=== PATIENT | male | born 1990 | race Caucasian/White ===

== ENCOUNTER 2024-08-02 20:03 | Observation (INO) | payer OTHER, SELFPAY ==
[2024-08-02] VITALS (19 sets, daily range): BP systolic 115–144; BP diastolic 56–83; PULSE 59–90; RESP 15–21; TEMP 37.2; O2SAT 93–99; BMI 38.0
--- NOTE | 2024-08-02 20:12 | DI.RAD.S_ITS ---
PROCEDURE: XR CHEST 1V INDICATIONS: Chest Pain TECHNIQUE: One view of the chest was acquired. COMPARISON: None. FINDINGS: Surgical changes and devices: None. Lungs and pleura: Lungs are clear. No pleural effusions or pneumothorax. Mediastinum: Mediastinal contours appear normal. Heart size is normal. Bones and chest wall: No suspicious bony lesions. Overlying soft tissues appear unremarkable. IMPRESSION: No acute pulmonary process. Dictated by: Jane Avila M.D. on 08/02/2024 at 21:45 Approved by: Jane Avila M.D. on 08/02/2024 at 21:45
--- NOTE | 2024-08-02 20:17 | EKG_ITS ---
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
--- NOTE | 2024-08-02 20:27 | ED_ITS ---
HPI - Chest Pain General Chief Complaint: Chest Pain Stated Complaint: Chest Pain, SOB Time Seen by Provider: 08/02/24 20:23 Source: patient, RN notes reviewed and old records reviewed Mode of arrival: Family Vehicle Limitations: no limitations History of Present Illness HPI narrative: 33-year-old male reported history of NSTEMI with cardiac stent parotid% occlusion of RCA placed approximately 3 weeks ago I have [facility]. Patient was seen initially at [place] [facility]. Presents with complaint of chest pain x2 days. Patient states sort of substernal has been present for the past 2 days on and off initially thought it was secondary to food but notes sometimes with exertion but not always pretty states it was sort of comes and goes. It does radiate towards his back. He states his hands and feet feel sweaty he has felt sort of lightheaded. No fevers. He was felt a little bit short of breath. Denies any nausea or vomiting. No new swelling in his extremities. No syncope. Patient states that he did have 1 stent placed was told he had 100% occlusion, was started on aspirin 81 mg, Brilinta, atorvastatin, metoprolol, amlodipine and pantoprazole. States no other prior surgeries. No family history of cardiac issues. Quit smoking about a week ago. No alcohol, no recreational drugs. He was currently without a primary care. Does not have follow up with Cardiology as did not accept his insurance has been trying to find follow up. Patient was accompanied by his girlfriend. Related Data Allergies Allergy/AdvReac Type Severity Reaction Status Date / Time carvedilol Allergy Verified 08/02/24 20:22 Review of Systems Review of Systems ROS Unobtainable: All systems reviewed & are unremarkable except as noted in HPI and below Exam Narrative Exam Narrative: GENERAL: Alert and oriented x three, male in mild distress HEENT: Head normocephalic, atraumatic, EOMI, pupils reactive, face symmetric, moist mucous membranes NECK: Supple, full range of motion CARDIOVASCULAR: Regular rate and rhythm without murmurs, rubs or gallops. No JVD. No edema bilateral lower extremities. RESPIRATORY: Breath sounds equal bilaterally, no wheezes rales or rhonchi. No tachypnea or accessory muscle use. ABDOMEN: Soft, nontender. Normoactive bowel sounds all 4 quadrants. No guarding or rebound, rigidity, no mass : No CVA tenderness EXTREMITIES: Normal range of motion, no clubbing or edema. Neurovascularly intact NEUROLOGICAL: Cranial nerves II through XII grossly intact. Moving all extremities SKIN: Warm, dry, no petechiae, no rashes or lesions. Initial Vital Signs Initial Vital Signs: Vital Signs Temperature 99.0 F 08/02/24 20:10 Pulse Rate 66 08/02/24 20:10 Respiratory Rate 18 08/02/24 20:10 Blood Pressure 120/67 08/02/24 20:10 Pulse Oximetry 98 08/02/24 20:10 Oxygen Delivery Method Room Air 08/02/24 20:10 Course Orders Ordered: ED Orders 08/02/24 20:12 XR chest 1V Stat EKG-12 Lead Stat 08/02/24 20:35 Complete Blood Count AUTO DIFF Stat Comprehensive Metabolic Panel Stat Lipase Stat Magnesium Stat NT-proBNP (BNP-Adult 18+) Stat PTT Partial Thromboplastin Chucky Stat Prothrombin Time INR Stat Troponin & CK Cardiac Panel Stat 08/02/24 21:20 CT angio chest PE protocol Stat 08/02/24 22:25 Trop I [Troponin I] Stat 08/02/24 22:26 EKG-12 Lead Stat Nitroglycerin (Nitroglycerin 0.4 Mg Sl Tab) 0.4 mg SL [id number] PRN PRN Reason: Chest Pain Last Admin: 08/02/24 20:51 Dose: 0.4 mg Documented By: Admin: 08/02/24 20:43 Dose: 0.4 mg Documented By: ALEX Discontinued Medications Aspirin (Aspirin 81 Mg Chew Tab) 324 mg PO NOW ONE Stop: 08/02/24 20:12 Last Admin: 08/02/24 20:42 Dose: 324 mg Documented By: ALEX Morphine Sulfate (Morphine 4 Mg/Ml Inj) 4 mg IV NOW ONE Stop: 08/02/24 21:08 Last Admin: 08/02/24 21:15 Dose: 4 mg Documented By: TOLU Morphine Sulfate (Morphine 4 Mg/Ml Inj) 4 mg IV NOW ONE Stop: 08/02/24 23:15 Last Admin: 08/02/24 23:18 Dose: 4 mg Documented By: ALEX Vital Signs Vital signs: Vital Signs - 8 hr 08/02/24 20:10 08/02/24 20:32 08/02/24 20:32 Temperature 99.0 F Pulse Rate 66 75 Respiratory Rate 18 16 Blood Pressure 120/67 144/83 H Pulse Oximetry 98 99 Oxygen Delivery Method Room Air 08/02/24 20:43 08/02/24 20:45 08/02/24 20:45 Temperature Pulse Rate 90 74 Respiratory Rate 15 Blood Pressure 144/83 H 133/74 Pulse Oximetry 97 Oxygen Delivery Method 08/02/24 20:51 08/02/24 20:51 08/02/24 20:51 Temperature Pulse Rate 74 78 Respiratory Rate 18 Blood Pressure 124/59 L 124/59 L Pulse Oximetry 98 Oxygen Delivery Method 08/02/24 20:55 08/02/24 20:55 08/02/24 21:00 Temperature Pulse Rate 75 Respiratory Rate 15 Blood Pressure 117/56 L 120/57 L Pulse Oximetry 97 Oxygen Delivery Method 08/02/24 21:00 08/02/24 21:04 08/02/24 21:04 Temperature Pulse Rate 74 76 Respiratory Rate 15 18 Blood Pressure 122/58 L Pulse Oximetry 97 93 Oxygen Delivery Method 08/02/24 21:05 08/02/24 21:05 08/02/24 21:10 Temperature Pulse Rate 75 Respiratory Rate 21 Blood Pressure 120/56 L 120/58 L Pulse Oximetry 95 Oxygen Delivery Method 08/02/24 21:10 08/02/24 21:15 08/02/24 21:15 Temperature Pulse Rate 74 70 Respiratory Rate 16 19 Blood Pressure 122/56 L Pulse Oximetry 96 96 Oxygen Delivery Method 08/02/24 21:20 08/02/24 21:20 08/02/24 21:25 Temperature Pulse Rate 74 Respiratory Rate 17 Blood Pressure 130/68 123/64 Pulse Oximetry 98 Oxygen Delivery Method 08/02/24 21:25 08/02/24 21:39 08/02/24 22:00 Temperature Pulse Rate 67 66 64 Respiratory Rate 16 15 Blood Pressure Pulse Oximetry 98 94 97 Oxygen Delivery Method 08/02/24 22:30 08/02/24 23:00 08/02/24 23:03 Temperature Pulse Rate 65 66 65 Respiratory Rate 20 Blood Pressure Pulse Oximetry 98 96 98 Oxygen Delivery Method Room Air 08/02/24 23:03 Temperature Pulse Rate Respiratory Rate Blood Pressure 122/63 Pulse Oximetry Oxygen Delivery Method MDM - Chest Pain Lab Data 08/02/24 20:35 08/02/24 20:35 Labs: Lab Results 08/02/24 08/02/24 Range/Units 20:35 22:25 WBC 6.0 (4.5-11.0) X10^3/uL RBC 4.82 (4.5-5.9) X10^6/uL Hgb 14.4 (13.5-17.5) g/dL Hct 41.4 (41-53) % MCV 85.8 (80-100) fL MCH 29.9 (26-34) PG MCHC 34.9 (30-36) % RDW 13.1 (11.6-14.8) % Plt Count 357 (150-400) X10^3/uL Neut % (Auto) 61.6 (50-75) % Lymph % (Auto) 24.1 L (25-40) % Green % (Auto) 9.2 (3-14) % Eos % (Auto) 3.9 (2-4) % Baso % (Auto) 1.2 (0-2) % Neut # (Auto) 3700 (5715-0432) /uL Lymph # (Auto) 1400 (4987-7091) /uL Green # (Auto) 600 (0-900) /uL Eos # (Auto) 200 (0-450) /uL Baso # (Auto) 100 (0-100) /uL PT 11.8 (9.4-12.5) SECONDS INR 1.0 (0.9-1.3) APTT 35 (25.1-36.5) SECONDS Sodium 138 (137-145) mmol/L Potassium 3.7 (3.4-5.1) mmol/L Chloride 103 (98-107) mmol/L Carbon Dioxide 26 (22-32) mmol/L BUN 8 L (9-20) mg/dL Creatinine 0.96 (0.66-1.25) mg/dL Estimated GFR > 60 (>60) mL/min BUN/Creatinine Ratio 8.3 (6-22) Glucose 105 H (70-99) mg/dL Calcium 8.9 (8.4-10.2) mg/dL Magnesium 1.9 (1.6-2.3) mg/dL Total Bilirubin 0.6 (0.2-1.3) mg/dL AST 26 (17-59) IU/L ALT 28 (<50) IU/L Alkaline Phosphatase 84 (38-126) U/L Total Creatine Kinase 57 (55-170) U/L Troponin I < 0.012 < 0.012 (0.01-0.034) ng/mL NT-Pro-B Natriuret Pep 214 H (<125) pg/mL Total Protein 8.0 (6.3-8.2) g/dL Albumin 4.3 (3.5-5.0) g/dL Globulin 3.7 (1.7-4.1) g/dL Albumin/Globulin Ratio 1.2 (1.0-2.8) Lipase 77 (23-300) U/L ECG Data Attestation: I personally reviewed and interpreted this ECG as follows: Prior ECG tracings: not available for review Interpretation: Sinus rhythm rate of 72 VA 128 QRS 84 QTC of 394 T-wave inversions in lead 2 3 and AVF with a diversion and V6. V2 S is elevated with a peak T-wave but no elevation contiguous leads. Patient does have a Q-wave in 1 and aVL. EKG 2. Shows a rate of 68 VA 128 QRS 86 QTC of 393 sinus rhythm appears similar to prior with no acute ST or dynamic ST changes appreciated. T-wave inversions are present in 2 3 and AVF as well as V6, patient has elevated S. Q-wave in 1 and aVL. EKG 3. Sinus rhythm rate of 65 VA 136 QRS 84 QTC of 409, nonspecific change from to priors, do not appreciate any dynamic changes other than flattening of T-wave in V6. MDM Narrative Medical decision making narrative: 33-year-old male with recent myocardial infarction 3 weeks ago on appropriate medication including aspirin, Brilinta, atorvastatin, metoprolol and amlodipine as well as pantoprazole start having chest pain in the past 2 days which he describes as intermittent nothing seems to really make it better or worse. He was normotensive here, no hypoxia. Do not have any prior EKGs but he does not have a normal EKG. Tenting to obtain records from [facility]. Labs show normal hemoglobin platelets, coags are negative BUN is a electrolytes BUN creatinine are normal glucose is 105 troponins less than 0.012 BNP is 214. Repeat troponin is less than 0.012 EKG show no dynamic changes. Chest x-ray no acute pulmonary process CTA shows no pulmonary embolus no other acute pulmonary process. No pericardial effusion. Patient received aspirin and nitro sublingual, patient's chest pain improved to 4/10 but has not resolved. Was given a dose of morphine and is no chest pain free. chest pain did reoccur and had additional dose of pain medication. Spoke with cardiology from [facility]: Dr. Herrera at [facility] at 1205. Reviewed workup today, EKGs, imaging. Did note I do not have any priors for comparison. He would recommend observation serial troponins and echo does not feel that he needs a stress test. He states if troponins were negative would not feel that he requires heart catheterization. Spoke with Dr. Madden, telehospitalist who accepts for observation. Reviewed findings from from today, EKGs, imaging. Recommendations from Cardiology and [facility]. Discharge Plan Departure Patient Disposition: Admitted as Observation Clinical Impression: Chest pain
--- NOTE | 2024-08-02 20:27 | EKG_ITS ---
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
[2024-08-02] MEDS: ASPIRIN 81 MG CHEW TAB 324 MG PO (20:42)
[2024-08-02] MEDS: NITROGLYCERIN 0.4 MG SL TAB SL ×2 (20:43→20:51)
[2024-08-02 20:46] LABS: Add Manual Diff / Slide Review NO; Basophils Absolute Auto 100 /uL (0-100); Basophils Percent Auto 1.2 % (0-2); Eosinophils Absolute Auto 200 /uL (0-450); Eosinophils Percent Auto 3.9 % (2-4); Hematocrit 41.4 % (41-53); Hemoglobin 14.4 g/dL (13.5-17.5); Lymphocytes Absolute Auto 1400 /uL (1100-4500); Lymphocytes Percent Auto 24.1 % (25-40); Mean Corpuscular HGB Conc 34.9 % (30-36); Mean Corpuscular Hemoglobin 29.9 PG (26-34); Mean Corpuscular Volume 85.8 fL (80-100); Monocytes Absolute Auto 600 /uL (0-900); Monocytes Percent Auto 9.2 % (3-14); Neutrophils Absolute Auto 3700 /uL (1500-7000); Neutrophils Percent Auto 61.6 % (50-75); Platelet Count 357 X10^3/uL (150-400); Red Blood Cell Count 4.82 X10^6/uL (4.5-5.9); Red Cell Distribution Width 13.1 % (11.6-14.8)
[2024-08-02 20:53] LABS: Prothrombin Time 11.8 SECONDS (9.4-12.5)
[2024-08-02 20:55] LABS: PTT Partial Thromboplastin Tim 35 SECONDS (25.1-36.5)
[2024-08-02 20:58] LABS: Alanine Aminotransferase 28 IU/L (<50); Albumin 4.3 g/dL (3.5-5.0); Albumin Globulin Ratio 1.2 (1.0-2.8); Alkaline Phosphatase 84 U/L (38-126); Aspartate Aminotransferase 26 IU/L (17-59); BUN Creatinine Ratio 8.3 (6-22); Bilirubin Total 0.6 mg/dL (0.2-1.3); Blood Urea Nitrogen 8 mg/dL (9-20); Calcium 8.9 mg/dL (8.4-10.2); Carbon Dioxide 26 mmol/L (22-32); Chloride 103 mmol/L (98-107); Creatine Kinase 57 U/L (55-170); Estimated Glomerular Filt Rate > 60 mL/min (>60); Globulin 3.7 g/dL (1.7-4.1); Glucose 105 mg/dL (70-99); HEMOLYSIS < 15 (0-50); Lipase 77 U/L (23-300); Magnesium 1.9 mg/dL (1.6-2.3); Potassium 3.7 mmol/L (3.4-5.1); Sodium 138 mmol/L (137-145)
[2024-08-02 21:10] LABS: NT-proBNP (BNP-Adult 18+) 214 pg/mL (<125); Troponin I < 0.012 ng/mL (0.01-0.034)
[2024-08-02] MEDS: MORPHINE 4 MG/ML INJ IV ×2 (21:15→23:18)
--- NOTE | 2024-08-02 21:20 | DI.CT.S_ITS ---
PROCEDURE: CT ANGIO CHEST PE PROTOCOL INDICATIONS: chest pain, 3 weeks post cardiac stent TECHNIQUE: After the administration of intravenous contrast, 2 mm thick sections acquired from the pulmonary apices to the posterior costophrenic angles. 3-dimensional maximum intensity projection (MIP) coronal and sagittal reformats were then acquired through the thorax. For radiation dose reduction, the following was used: automated exposure control, adjustment of mA and/or kV according to patient size. COMPARISON: [facility], CR, XR CHEST 1V, 08/02/2024, 20:21. FINDINGS: Image quality: Diagnostic. Pulmonary arteries: Pulmonary arteries are normal in size, and demonstrate no intraluminal filling defects to suggest central pulmonary embolism. Lower Neck: No enlarged lymph nodes. Thyroid: No thyroid nodules which require sonographic follow up, per consensus guidelines. Axillae: No enlarged lymph nodes. Chest Wall: Unremarkable. Bones: Unremarkable. Lungs and Pleura: No pneumothorax or pleural effusions. No consolidation or suspicious nodules. Heart: Heart size is normal. No pericardial effusion. Thoracic Vessels: No aortic aneurysm. Mediastinum and Shelly: No enlarged lymph nodes. Esophagus: No wall thickening. Minimal hiatal hernia. Upper Abdomen: Visualized upper abdomen solid organs and bowel loops appear normal. IMPRESSION: No pulmonary embolus. No acute cardiopulmonary process. Dictated by: Jane Avila M.D. on 08/02/2024 at 22:01 Approved by: Jane Avila M.D. on 08/02/2024 at 22:01
--- NOTE | 2024-08-02 22:33 | EKG_ITS ---
[place] [id number] [place] [id number] Test Date: 2024-08-02 Pat Name: Ethan Angel Department: Room: 222 Gender: Male Graphics Manager: BOBBY : 1990 Requested By: Order Number: [id number] Reading MD: Grupo Ochoa Measurements Intervals [place] Rate: 65 P: 17 CT: 136 QRS: -9 QRSD: 84 T: -30 QT: 394 QTc: 409 Interpretive Statements Normal sinus rhythm Minimal voltage criteria for LVH, may be normal variant ( R in aVL ) Cannot rule out Inferior infarct , age undetermined Electronically Signed On 08-04-2024 19:06:21 PDT by Grupo Ochoa
[2024-08-02 23:01] LABS: Troponin I < 0.012 ng/mL (0.01-0.034)
--- NOTE | 2024-08-02 23:08 | PC.NURSE ---
Pt reports 4/10 left sided chest pain. Provider Aftab made aware.
[2024-08-03] VITALS (8 sets, daily range): BP systolic 103–130; BP diastolic 53–78; PULSE 54–65; RESP 12–21; TEMP 35.7–36.6; O2SAT 96–100; BMI 38.1
--- NOTE | 2024-08-03 | DI.ECHO.S_ITS ---
[facility] +---------+ [facility] : : [address] : : [place] : : [id number] : : Phone: [phone] Echocardiogram Report + + :Name: JANE WAGNER Study Date: 08/03/2024 Height: 70 in : :Hospital ReadingLocation: Weight: 265 lb : : Gender: Male BSA: 2.4 m2 : :: 1990 Age: 33 yrs BP: 109/57 mmHg: :Reason For Study: CHEST PAIN : :Ordering Physician: JUSTYN, : :YANELIS Performed By: Yu Agudelo : :Referring: YANELIS ALEJANDRA : + + Interpretation Summary 1) Normal left ventricular thickness and size with low normal systolic function (EF 50-55%). 2) Normal right ventricular size and function. 3) No significant valvular abnormalities. 4) No prior Echo available for comparison. Procedure: A two-dimensional transthoracic echocardiogram with color flow and Doppler was performed. The study quality was technically adequate. There is no prior echocardiogram noted for this patient. The patient was in sinus bradycardia with heart rates between 50-62 bpm during the exam. Left Ventricle: The left ventricle is normal in size and wall thickness. The ejection fraction is estimated to be 50-55%. There are no obvious focal wall motion abnormalities noted but poor endocardial definition reduces the sensitivity for the detection of such. Diastolic parameters suggest probable normal left ventricular diastolic function and normal filling pressures. Right Ventricle: The right ventricle is normal in size and function. Atria: The left atrial size is normal. Right atrial size is normal. There is no Doppler evidence for an interatrial shunt. Mitral Valve: The mitral valve leaflets appear mildly thickened, but open well. There is trace mitral regurgitation. Aortic Valve: The aortic valve is trileaflet. The aortic valve opens well. There is no aortic valve stenosis. No aortic regurgitation is present. Tricuspid Valve: The tricuspid valve leaflets are thin and pliable. There is mild tricuspid regurgitation. The right ventricular systolic pressure is estimated to be at least 23 mmHg based on an estimated right atrial pressure of 3 mm Hg. Pulmonic Valve: The pulmonic valve leaflets are thin and pliable; valve motion is normal. There is trace pulmonic regurgitation. Great Vessels: The aortic root is normal size. The dimensions of the ascending aorta are normal. The IVC is of normal diameter and collapses greater than 50% with a sniff. This suggests a low right atrial pressure of 3 mm Hg. Pericardium/ Pleura There is no pericardial effusion. There is no pleural effusion. MMode/2D Measurements & Calculations LVIDd: 5.6 cm LVOT diam: 2.3 cm LVIDs: 4.1 cm Ao root diam: 3.0 cm FS: 27.8 % asc Aorta Diam: 2.9 cm EPSS: 1.2 cm Ao Arch Diam (Prox Trans): 2.9 cm IVSd: 0.85 cm LVPWd: 0.86 cm LV stacy. diameter/BSA (cm/m^2): 2.4 LV sys. diameter/BSA (cm/m^2): 1.7 LA A2 area: 19.3 cm2 RA long axis: 4.2 cm LA A4 area: 16.2 cm2 RA area: 14.7 cm2 LA length (vol): 5.3 cm RA vol: 43.7 ml LA vol: 50.2 ml RA : 18.6 ml/m2 LA vol index: 21.3 ml/m2 IVC diam: 1.3 cm RVD1 (basal): 3.9 cm RVD2 (mid): 3.4 cm TAPSE: 2.1 cm Doppler Measurements & Calculations Ao V2 max: 121.3 cm/sec LVOT Max Salvador: 68.8 cm/sec Ao V2 mean: 83.3 cm/sec LV V1 max P.9 mmHg Ao max P.9 mmHg LV V1 VTI: 15.0 cm Ao mean P.1 mmHg ERENDIRA(I,D): 2.3 cm2 Ao V2 VTI: 27.4 cm ERENDIRA(V,D): 2.4 cm2 sev ratio: 0.55 ERENDIRA indexed to BSA (cm^2/m^2): 0.97 MV E max salvador: 75.6 cm/sec TR max salvador: 224.6 cm/sec MV A max salvador: 32.5 cm/sec TR max P.2 mmHg MV E/A: 2.3 PA V2 max: 86.4 cm/sec Med Peak E' Salvador: 11.4 cm/sec PA V2 mean: 61.9 cm/sec E/E' med: 6.6 PA mean P.7 mmHg Lat Peak E' Salvador: 12.1 cm/sec PA pr(Accel): 17.3 mmHg E/E' lat: 6.2 E/e' average: 6.4 MV dec time: 0.15 sec SV(LVOT): 62.4 ml Reading Physician:10:09 AM
[2024-08-03] MEDS: MORPHINE 4 MG/ML INJ 3 MG IV ×2 (01:50→05:57)
--- NOTE | 2024-08-03 05:07 | PM.HP.1 ---
History of Present Illness History of Present Illness Chief complaint: Chest Pain, SOB Narrative: 33-year-old male with past medical he of coronary disease, hypertension and hyperlipidemia presents with chest pain. Of note the patient was seen in [facility] 3 weeks ago and was found to have significant coronary disease with reported 100% stenosis of his RCA. At that time the patient received a stent and was placed on aspirin, atorvastatin and Brilinta. The patient states that he has been chest pain-free since and has been doing relatively well the patient has been compliant to all the medication that he was prescribed. However today the patient started to have acute onset of left-sided chest pain. Acute onset of left-sided chest pain. The patient states that his pain is similar to what he experienced 3 weeks ago in which it was dull and intermittent. The patient denies any radiation of his pain. Otherwise the patient denies any recent fever, chills, nausea, vomiting, diarrhea, shortness of breath or syncope. In the emergency room, the patient was hemodynamically stable. Tropes were negative x 2. Other labs were relatively benign. Cardiology group from [facility] was consulted and recommended that we admit the patient to continue to trend troponin and obtain echocardiogram in the morning. Of note EKG shows no acute changes from recent EKG. If troponin remains negative and echocardiogram is normal patient may be able to be discharged home and follow-up with cardiology as outpatient. [facility] Social History household members: significant other and family Smoking Status: Former smoker alcohol intake: never Meds Home Medications and Allergies Home Medications Medication Instructions Recorded Confirmed Type amlodipine 10 mg tablet 10 mg PO BEDTIME 08/03/24 08/03/24 History aspirin 81 mg tablet,delayed 81 mg PO DAILY 08/03/24 08/03/24 History release atorvastatin 40 mg tablet 40 mg PO BEDTIME 08/03/24 08/03/24 History metoprolol succinate 50 mg 50 mg PO BEDTIME 08/03/24 08/03/24 History tablet,extended release 24 hr pantoprazole 20 mg tablet,delayed 20 mg PO DAILY 08/03/24 08/03/24 History release ticagrelor 90 mg tablet (Brilinta) 90 mg PO BID 08/03/24 08/03/24 History Allergies Allergy/AdvReac Type Severity Reaction Status Date / Time carvedilol Allergy Verified 08/02/24 20:22 Review of Systems Review of Systems ROS: Yes All systems reviewed with the patient and are negative except as otherwise documented Exam Vital Signs (past 8 hours): - 08/02/24 21:10 08/02/24 21:10 08/02/24 21:15 Temperature Pulse Rate 74 Respiratory Rate 16 Blood Pressure 120/58 L 122/56 L Pulse Oximetry 96 Oxygen Delivery Method Oxygen Flow Rate 08/02/24 21:15 08/02/24 21:20 08/02/24 21:20 Temperature Pulse Rate 70 74 Respiratory Rate 19 17 Blood Pressure 130/68 Pulse Oximetry 96 98 Oxygen Delivery Method Oxygen Flow Rate 08/02/24 21:25 08/02/24 21:25 08/02/24 21:39 Temperature Pulse Rate 67 66 Respiratory Rate 16 Blood Pressure 123/64 Pulse Oximetry 98 94 Oxygen Delivery Method Oxygen Flow Rate 08/02/24 22:00 08/02/24 22:30 08/02/24 23:00 Temperature Pulse Rate 64 65 66 Respiratory Rate 15 20 Blood Pressure Pulse Oximetry 97 98 96 Oxygen Delivery Method Oxygen Flow Rate 08/02/24 23:03 08/02/24 23:03 08/02/24 23:30 Temperature Pulse Rate 65 59 L Respiratory Rate 21 Blood Pressure 122/63 Pulse Oximetry 98 98 Oxygen Delivery Method Room Air Oxygen Flow Rate 08/02/24 23:30 08/03/24 00:00 08/03/24 00:00 Temperature Pulse Rate 65 Respiratory Rate 17 Blood Pressure 115/62 130/78 Pulse Oximetry 99 Oxygen Delivery Method Oxygen Flow Rate 08/03/24 00:30 08/03/24 00:30 08/03/24 01:00 Temperature Pulse Rate 60 Respiratory Rate 13 Blood Pressure 116/64 110/60 Pulse Oximetry 96 Oxygen Delivery Method Oxygen Flow Rate 08/03/24 01:00 08/03/24 01:20 08/03/24 02:19 Temperature 96.2 F L Pulse Rate 58 L 59 L Respiratory Rate 21 19 Blood Pressure 117/68 Pulse Oximetry 96 100 Oxygen Delivery Method Room Air Oxygen Flow Rate 0 08/03/24 04:00 Temperature 96.5 F L Pulse Rate 57 L Respiratory Rate 18 Blood Pressure 109/57 L Pulse Oximetry 99 Oxygen Delivery Method Oxygen Flow Rate 0 Oxygen Delivery Method Room Air Oxygen Flow Rate 0 Narrative Exam Narrative: Physical Exam: GENERAL: The patient is not in any acute distressed. Awake and alert. HEENT: Nonicteric sclerae, PERRLA, EOMI. Oropharynx clear. Moist mucous membranes. Conjunctivae appear well perfused. HEART: Regular rate and rhythm without murmurs. No lower extremities edema. LUNGS: Clear to auscultation bilaterally. No wheezing, crackles or rhonchi ABDOMEN: Soft, positive bowel sounds, nontender. SKIN: No rash, no excessive bruising, petechiae, or purpura. NEUROLOGIC: AxO x 3. Cranial nerves II-XII intact without motor/sensory deficit. Objective Labs 08/02/24 20:35 08/02/24 20:35 Labs: Laboratory Results - last 24 hr 08/02/24 08/02/24 20:35 22:25 WBC 6.0 RBC 4.82 Hgb 14.4 Hct 41.4 MCV 85.8 MCH 29.9 MCHC 34.9 RDW 13.1 Plt Count 357 Neut % (Auto) 61.6 Lymph % (Auto) 24.1 L [place] % (Auto) 9.2 Eos % (Auto) 3.9 Baso % (Auto) 1.2 Neut # (Auto) 3700 Lymph # (Auto) 1400 [place] # (Auto) 600 Eos # (Auto) 200 Baso # (Auto) 100 PT 11.8 INR 1.0 APTT 35 Sodium 138 Potassium 3.7 Chloride 103 Carbon Dioxide 26 BUN 8 L Creatinine 0.96 Estimated GFR > 60 BUN/Creatinine Ratio 8.3 Glucose 105 H Calcium 8.9 Magnesium 1.9 Total Bilirubin 0.6 AST 26 ALT 28 Alkaline Phosphatase 84 Total Creatine Kinase 57 Troponin I < 0.012 < 0.012 NT-Pro-B Natriuret Pep 214 H Total Protein 8.0 Albumin 4.3 Globulin 3.7 Albumin/Globulin Ratio 1.2 Lipase 77 Assessment & Plan Assessment & Plan narrative: Chest pain. Admit the patient to medical telemetry under observation.Tropes were negative x 2. Other labs were relatively benign. Cardiology group from [facility] was consulted and recommended that we admit the patient to continue to trend troponin and obtain echocardiogram in the morning. Of note EKG shows no acute changes from recent EKG. If troponin remains negative and echocardiogram is normal patient may be able to be discharged home and follow-up with cardiology as outpatient. Continue home aspirin and other cardiac medication. Hypertension. Resume home amlodipine. Hyperlipidemia. Resume home statin. DVT prophylaxis SCDs due to observational status. CODE STATUS full code. Disposition likely home in 1 to 2 days - As the provider of this telehealth evaluation, requested by the patient's evaluating physician, I attest that I introduced myself to the patient, provided my credentials and determined that telemedicine via a real-time, 2 way interactive audio and video platform is an appropriate and effective means of providing this service. - I reviewed the patient's chart and had a discussion with the member of the patient's treatment team. - The patient and I mutually agreed with continuation of this evaluation via telemedicine. The patient consented for the telemedicine evaluation. - This virtual encounter was taken place from [place] by Dr. Gomez Madden. The patient was evaluated at [facility]. The encounter was approximately 35 minutes. The nurse was present during the entire time of the encounter and was able to move the stethoscope in appropriate directions. Time-Based Coding :: [TOTAL MINUTES] spent with patient and on the chart (including review of chart, obtaining history, exam, reviewing outside data, placing orders, documenting exam and treatment plan, and counseling patient) on [DATE]. Quality VTE Deep Vein Thrombosis/Pulmonary Embolism Present on Admission: No
[2024-08-03] MEDS: ASPIRIN EC 81 MG TABLET PO (09:04)
[2024-08-03] MEDS: PANTOPRAZOLE DR 20 MG TABLET PO (09:04)
[2024-08-03] MEDS: TICAGRELOR 90 MG 90 EACH PO (09:06)
[2024-08-03] MEDS: SODIUM CHLORIDE 0.9% FLUSH 10 ML IV (09:07)
--- NOTE | 2024-08-03 09:41 | PC.NURSE ---
Patient states that his chest pain is now down to a 4/10. Blood Pressure WNL with dyastolic in the 60s, all morning medications given. Patient complains of dizziness at times, he will call if he needs to get up to use the bathroom. Tele is in place. Will give patient Morphine if his chest pain goes up or gets worse, and notify the
[2024-08-03] MEDS: predniSONE 20 MG TABLET 40 MG PO (12:00)
[2024-08-03] MEDS: ACETAMINOPHEN 325 MG TABLET 650 MG PO (12:08)
--- NOTE | 2024-08-03 14:32 | CM.DANOTE ---
Initial DCP Assessment Note Pt is a 33 yo male, resident of [place], past medical history of coronary disease, hypertension and hyperlipidemia presents with chest pain. Patient is s/p stent of his RCA at 3 weeks ago. PCP: Unknown Payer: RENIAT MCINTOSH Reviewed chart, pt discussed in multidisciplinary rounds this morning. Patient is likely to discharge after echo. No barriers identified at this time to patient's safe discharge home w/family to assist; close outpatient f/u recommended. CM team will plan to follow clinical course closely in case any DC needs or concerns arise. SHA [facility] Discharge Planning/Care Management CM Discharge Assessment Start: 08/03/24 01:49 Freq: Status: Active Protocol: Document 08/03/24 14:29 MAIA (Rec: 08/03/24 14:32 MAIA [id number]) Discharge Planning Assessment Assigned Data Processing Clerk SHA Landry DPOA/Assigned Designee Name TOMMY Mello Contact Information [phone] Advance Directives? No History Provided By Patient,Medical Record Has Patient been admitted in last 30 No days? Prior Living Arrangements House Household Members significant other,family Type of transporation used prior to Drives own vehicle admit Independent with ADL's Yes Is patient alert and oriented? Yes Barriers to Discharge No Discharge Plan Home Transportation Arrangement Family Referrals Initiated None needed
[2024-08-03] MEDS: INFLUENZA VACCINE QIV 0.5 ML SYRINGE IM (14:42)
--- NOTE | 2024-08-03 15:53 | P.DS_ITS ---
History of Present Illness History of Present Illness Date Patient Seen: 08/03/24 Time Patient Seen: 15:53 Chief complaint: Chest Pain, SOB Narrative: Per admitting provider, 33-year-old male with past medical he of coronary disease, hypertension and hyperlipidemia presents with chest pain. Of note the patient was seen in [facility] 3 weeks ago and was found to have significant coronary disease with reported 100% stenosis of his RCA. At that time the patient received a stent and was placed on aspirin, atorvastatin and Brilinta. The patient states that he has been chest pain-free since and has been doing relatively well the patient has been compliant to all the medication that he was prescribed. However today the patient started to have acute onset of left-sided chest pain. Acute onset of left-sided chest pain. The patient states that his pain is similar to what he experienced 3 weeks ago in which it was dull and intermittent. The patient denies any radiation of his pain. Otherwise the patient denies any recent fever, chills, nausea, vomiting, diarrhea, shortness of breath or syncope. In the emergency room, the patient was hemodynamically stable. Tropes were negative x 2. Other labs were relatively benign. Cardiology group from [facility] was consulted and recommended that we admit the patient to continue to trend troponin and obtain echocardiogram in the morning. Of note EKG shows no acute changes from recent EKG. If troponin remains negative and echocardiogram is normal patient may be able to be discharged home and follow-up with cardiology as outpatient. Discharge Providers Provider Date of admission: 08/03/24 01:40 Discharge Date: 08/03/24 Discharge provider: Grupo Ochoa DO Summary Hospital Course Discharge Diagnosis: Chest pain, recent dx CAD with stenting <1 month ago. Possible pericarditis. Hypertension. Hyperlipidemia. Hospital Course: This is a 33-year-old male with a past medical history of hypertension, hyperlipidemia, CAD with recent stenting at [facility] who presented with chest pain. Initial evaluation in the emergency room revealed normal troponins, no changes to his EKG. His Cardiology group from [facility] was consulted and recommended that we admit the patient to continue to trend troponin and obtain echocardiogram in the morning. Echocardiogram was performed the following morning and was unremarkable. After further details of his history, the patient did improve with lying forward and he did have some radiation into his back with his pain. Differentials include musculoskeletal causes but also a pericarditis. He had no imaging with a pericardial effusion or inflammation, on both echocardiogram and CTA. He had no significant changes on his EKG. However given his timing, recent catheterization, and subjective presentation and typical pain this may be an early presentation of pericarditis. I discussed the possible treatments including continued observation without treatment and medical therapy and patient elected for medical therapy at this time. He did have some improvement with steroids given here in the hospital to support this diagnosis. I do recommend a low dose of prednisone as he was not willing to really entertain a taper on discharge. I instructed him that he could stop his prednisone once his symptoms had fully resolved. Given possible pericarditis as well he was discharged on 0.6 mg twice a day of colchicine for recurrence. I encouraged him to follow-up with a new primary care provider as well as his lamination spinner as previously scheduled. Time Spent with Patient Time spent: Greater than 30 minutes Exam Vital Signs (past 8 hours): - 08/03/24 08:00 08/03/24 12:00 Temperature 97.9 F 97.9 F Pulse Rate 54 L 58 L Respiratory Rate 12 16 Blood Pressure 104/53 L 103/58 L Pulse Oximetry 100 99 Oxygen Flow Rate 0 0 Oxygen Delivery Method Room Air Oxygen Flow Rate 0 Narrative Exam Narrative: Physical Exam: GENERAL: The patient is not in any acute distressed. Awake and alert. HEENT: Nonicteric sclerae, PERRLA, EOMI. Oropharynx clear. Moist mucous membranes. Conjunctivae appear well perfused. HEART: Regular rate and rhythm without murmurs. No lower extremities edema. LUNGS: Clear to auscultation bilaterally. No wheezing, crackles or rhonchi ABDOMEN: Soft, positive bowel sounds, nontender. SKIN: No rash, no excessive bruising, petechiae, or purpura. NEUROLOGIC: AxO x 3. Cranial nerves II-XII intact without motor/sensory deficit. Objective Labs 08/02/24 20:35 08/02/24 20:35 Labs: Laboratory Results - last 24 hr 08/02/24 08/02/24 20:35 22:25 WBC 6.0 RBC 4.82 Hgb 14.4 Hct 41.4 MCV 85.8 MCH 29.9 MCHC 34.9 RDW 13.1 Plt Count 357 Neut % (Auto) 61.6 Lymph % (Auto) 24.1 L [place] % (Auto) 9.2 Eos % (Auto) 3.9 Baso % (Auto) 1.2 Neut # (Auto) 3700 Lymph # (Auto) 1400 [place] # (Auto) 600 Eos # (Auto) 200 Baso # (Auto) 100 PT 11.8 INR 1.0 APTT 35 Sodium 138 Potassium 3.7 Chloride 103 Carbon Dioxide 26 BUN 8 L Creatinine 0.96 Estimated GFR > 60 BUN/Creatinine Ratio 8.3 Glucose 105 H Calcium 8.9 Magnesium 1.9 Total Bilirubin 0.6 AST 26 ALT 28 Alkaline Phosphatase 84 Total Creatine Kinase 57 Troponin I < 0.012 < 0.012 NT-Pro-B Natriuret Pep 214 H Total Protein 8.0 Albumin 4.3 Globulin 3.7 Albumin/Globulin Ratio 1.2 Lipase 77 PFSH Social History household members: significant other and family Smoking Status: Former smoker alcohol intake: never Discharge Plan Discharge Plan Patient Disposition: Home Provider Discharge Comment: You were admitted to the hospital with chest pain. It is not entirely clear as to the underlying etiology at this time, but the timing and description could be due to pericarditis. You are being treated for this with prednisone. Please continue prednisone until symptoms resolve and then you can stop. Complete 3 months of colchicine which can reduce recurrence, recommend follow up with primary care provider and lamination spinner as previously scheduled. Discharge orders & Medications Prescriptions: New prednisone 20 mg tablet 20 mg PO DAILY 7 Days Qty: 7 0RF colchicine 0.6 mg tablet 0.6 mg PO BID 90 Days Qty: 180 0RF Continued atorvastatin 40 mg tablet 40 mg PO BEDTIME metoprolol succinate 50 mg tablet extended release 24 hr 50 mg PO BEDTIME aspirin 81 mg tablet,delayed release (DR/EC) 81 mg PO DAILY pantoprazole 20 mg tablet,delayed release (DR/EC) 20 mg PO DAILY Brilinta 90 mg tablet 90 mg PO BID Discontinued amlodipine 10 mg tablet 10 mg PO BEDTIME Diet/Activity/Treatments Diet: Diet as Tolerated and Regular Activity: As tolerated, no restrictions. Visit Report/Discharge Packet Instructions: DI for Atypical Chest Pain, DI for Chest Pain, Prednisone, Colchicine Stand Alone Forms: Patient Portal/API, Stroke Signs & Symptoms Discharge Data Attending Provider: Gomez Madden Admit Date/Time: 05/22/25 01:40 Quality VTE Deep Vein Thrombosis/Pulmonary Embolism Present on Admission: No
== END 2024-08-03 16:50 | disposition home or self-care (01) ==
LOC: ED 08-03 01:33 → AC 08-03 01:44
PROVIDERS: Admitting Provider Internal Medicine; Emergency Provider Emergency Medicine; Referring Provider Emergency Medicine; Visit Provider Internal Medicine
DX: R07.9 Chest pain, unspecified (principal); I10 Essential (primary) hypertension; E78.5 Hyperlipidemia, unspecified; I25.10 Atherosclerotic heart disease of native coronary artery without angina pectoris; Z95.5 Presence of coronary angioplasty implant and graft; Z23 Encounter for immunization
CPT/HCPCS: 36415; 71045; 71275; 80053; 82550; 83690; 83735; 83880; 84484; 85025; 85610; 85730; 90471; 90656; 93005; 93306; 96374; 96376; 99284; G0378; J2270; Q2038; Q9967